=== PATIENT | male | born 1960 | race Two or more races ===

== ENCOUNTER 2019-01-24 22:09 | Inpatient (IN) | payer SELFPAY, OTHER ==
[2019-01-25] MEDS: DIPHTH/TET/ACEL PERTUSS (ADULT) 0.5 ML VIAL IM* (04:19)
[2019-01-25] MEDS: LABETALOL HCL 20MG INJ IV (04:20)
[2019-01-25 04:24] LABS: ADD MAN DIFF? NO
[2019-01-25 04:27] LABS: BASOPHIL # 0.1 10^3/ul (0.0-0.1); BASOPHILS % 1.2 % (0.0-2.0); EOSINOPHILS # 0.4 10^3/ul (0.0-0.5); EOSINOPHILS % 5.2 % (0.0-7.0); HEMATOCRIT 47.5 % (42.0-52.0); HEMOGLOBIN 15.8 g/dl (14.0-18.0); LYMPHOCYTES # 2.9 10^3/ul (0.8-2.9); LYMPHOCYTES % 37.3 % (15.0-51.0); MEAN CORPUSCULAR HEMOGLOBIN 29.4 pg (29.0-33.0); MEAN CORPUSCULAR HGB CONC 33.3 g/dl (32.0-37.0); MEAN CORPUSCULAR VOLUME 88.5 fl (82.0-101.0); MEAN PLATELET VOLUME 8.6 fl (7.4-10.4); MONOCYTE # 0.6 10^3/ul (0.3-0.9); MONOCYTES % 7.2 % (0.0-11.0); NEUTROPHIL # 3.7 10^3/ul (1.6-7.5); NEUTROPHILS % 48.7 % (39.0-77.0); PLATELET COUNT 307 10^3/UL (140-415); RED BLOOD COUNT 5.37 10^6/ul (4.70-6.10); RED CELL DISTRIBUTION WIDTH 14.6 % (11.5-14.5)
[2019-01-25 04:27] LABS: WHITE BLOOD COUNT 7.7 10^3/ul (4.8-10.8)
[2019-01-25 04:44] LABS: ANION GAP 16 (5-13); BLOOD UREA NITROGEN 9 mg/dl (7-20); CALCIUM 9.1 mg/dl (8.4-10.2); CARBON DIOXIDE 22 mmol/L (21-31); CHLORIDE 106 mmol/L (97-110); CREATININE 0.77 mg/dl (0.61-1.24); Estimated GFR > 60 mL/min (>60); GLUCOSE 122 mg/dl (70-220); POTASSIUM 3.5 mmol/L (3.5-5.1); SODIUM 144 mmol/L (135-144)
[2019-01-25 04:45] LABS: INR 0.98; PROTIME 13.1 Sec (11.9-14.9)
[2019-01-25 04:46] LABS: PARTIAL THROMBOPLASTIN TIME 25.5 Sec (23.0-35.0)
[2019-01-25] MEDS ORDERED: niCARdipine 25 MG in SOD CHLORIDE 0.9% 240 ML IV (05:30)
[2019-01-25] MEDS ORDERED: ACETAMINOPHEN 650MG/20.3ML CUP PO (05:30)
[2019-01-25] MEDS ORDERED: ONDANSETRON 4 MG INJ IV (05:30)
[2019-01-25] MEDS ORDERED: morphine 2 MG INJ IV (05:30)
[2019-01-25] MEDS ORDERED: LIDOCAINE 1%/EPI (MDV) 50 ML INJ INJ (05:30)
[2019-01-25] MEDS: LIDOCAINE 1%/EPI 30 ML INJ INJ (06:00)
[2019-01-25] MEDS: hydrALAzine 20 MG INJ IV ×2 (06:46→11:50)
[2019-01-25 07:27] LABS: AMPHETAMINE/METHAMPHETAMINE Negative (NEGATIVE); BARBITURATES Negative (NEGATIVE); BENZODIAZEPINES Negative (NEGATIVE); CANNABINOIDS Negative (NEGATIVE); COCAINE Negative (NEGATIVE); OPIATES Negative (NEGATIVE)
[2019-01-25] MEDS: SOD CHLORIDE 0.9% 1,000 ML IV (08:29)
[2019-01-25] MEDS: FAMOTIDINE 20 MG INJ IV (08:29)
[2019-01-25] MEDS: THIAMINE 200 MG INJ IM (10:58)
[2019-01-25] MEDS: FOLIC ACID 1 MG TAB PO (10:59)
[2019-01-25] MEDS: MULTIVITAMINS THERAPEUTIC TAB PO (10:59)
== END 2019-01-25 15:58 | disposition home or self-care (01) | DRG 305 ==
LOC: E/R 22:09 → ICU 01-25 05:23
DX: I16.1 Hypertensive emergency (principal); I62.9 Nontraumatic intracranial hemorrhage, unspecified; S09.90XA Unspecified injury of head, initial encounter; W01.0XXA Fall on same level from slipping, tripping and stumbling without subsequent striking against object, initial encounter; Y92.89 Other specified places as the place of occurrence of the external cause; Z72.89 Other problems related to lifestyle; E66.9 Obesity, unspecified; Z68.32 Body mass index [BMI] 32.0-32.9, adult
CPT/HCPCS: 36415; 70450; 73610-RT; 80048; 80307; 85025; 85610; 85730; 87081; 90471; 90715; 93306; 93880; 96374; 99285-25